=== PATIENT | male | born 1995 | race Caucasian/White ===

== ENCOUNTER 2017-06-28 09:59 | Emergency (ER) | payer SELFPAY ==
[2017-06-28 10:30] VITALS: BP 120/71
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
== END 2017-06-28 11:18 | disposition home or self-care (01) ==
LOC: UCCORT 09:59
DX: S06.0X0A Concussion without loss of consciousness, initial encounter (principal); R11.0 Nausea; W50.0XXA Accidental hit or strike by another person, initial encounter; Y93.9 Activity, unspecified; Y92.9 Unspecified place or not applicable; Z91.030 Bee allergy status
CPT/HCPCS: 70450; 99202; G0463